=== PATIENT | female | born 1960 | race Caucasian/White ===

== ENCOUNTER 2017-11-15 06:32 | Emergency (ER) | payer OTHER ==
[~2017-11-15] VITALS: Ht 160 cm; Wt 72.6 kg
[2017-11-15 06:38] VITALS: BP_SYST 169
[2017-11-15] MEDS ORDERED: ACETAMINOPHEN 500 MG TABLET PO ONE (08:00)
[2017-11-15 08:35] VITALS: BP_SYST 160
== END 2017-11-15 08:35 | disposition home or self-care (01) ==
LOC: SED 06:32
DX: M54.2 Cervicalgia (principal); F32.9 Major depressive disorder, single episode, unspecified; R03.0 Elevated blood-pressure reading, without diagnosis of hypertension; V89.2XXA Person injured in unspecified motor-vehicle accident, traffic, initial encounter; Y93.89 Activity, other specified; Y92.410 Unspecified street and highway as the place of occurrence of the external cause; Y99.8 Other external cause status
CPT/HCPCS: 70450-TC; 72125-TC; 99284

== ENCOUNTER 2019-02-21 08:44 | Emergency (ER) | payer OTHER ==
[~2019-02-21] VITALS: Ht 157.5 cm; Wt 77.1 kg
[2019-02-21 08:45] VITALS: BP_SYST 155
[2019-02-21] MEDS ORDERED: ONDANSETRON 4 MG ODT TAB PO ONE (09:30)
[2019-02-21 10:07] VITALS: BP_SYST 155
== END 2019-02-21 10:00 | disposition home or self-care (01) ==
LOC: SED 08:44
DX: Z76.0 Encounter for issue of repeat prescription (principal); F32.9 Major depressive disorder, single episode, unspecified
CPT/HCPCS: 99283; Q0162